=== PATIENT | male | born 1955 | race Caucasian/White ===

== ENCOUNTER 2018-12-20 18:38 | Observation (INO) | payer OTHER ==
[2018-12-20] MEDS ORDERED: LIDOCAINE 2% JELLY 6 ML TOPICAL SYR ONE (18:49)
[2018-12-20 19:22] LABS: PLATELET COUNT 413 10^3/uL (150-400)
--- NOTE | 2018-12-20 19:26 | EDPHY ---
H & P Stated Complaint: Recent thoracentesis, increasing SOB and fluid on abdomen. Time Seen by Provider: 12/20/18 18:47 HPI/ROS: CHIEF COMPLAINT: Fluid in the lungs, fluid in the belly HISTORY OF PRESENT ILLNESS: 63-year-old gentleman with history of pancreatic cancer diagnosed 5 years ago with metastasis to the lungs. Patient recently, December 08, had thoracentesis the right lung to remove a pleural effusion. Family reports that since that time he continues to have ongoing slightly worsening shortness of breath and ongoing chest pain. He also feels like he is developing some swelling in his abdomen. Denies fevers or chills. Denies palpitations. Nausea but no vomiting. No diarrhea. No urinary complaints. No headache. No lightheadedness. Has not been on any chemotherapeutic agents since 5-6 weeks ago. Patient has been on oxygen since the thoracentesis. REVIEW OF SYSTEMS: A comprehensive 10 system review of systems was reviewed and is otherwise negative aside from elements mentioned in the history of present illness and medical decision making. PAST MEDICAL HISTORY: Pancreatic cancer, history of pleural effusion. Patient' s care is been obtained at [facility] SOCIAL HISTORY: Former smoker, originally from [facility]. VITAL SIGNS Reviewed by me. O2 sat 98% on O2. GENERAL: Well-developed, well-nourished, no obvious respiratory distress. HEENT: Atraumatic. Eyes: No icterus, no injection. Mouth: moist mucous membranes. No erythema or lesions. Neck: supple with no adenopathy. LUNGS: Diminished breath sounds at the right base to half up lung [place]. Breath sounds are clear on the left. CARDIAC: Regular rate and rhythm, no rubs, murmurs or gallops. ABDOMEN: Soft, no significant tenderness. Slightly distended in the right upper and lower quadrants. No guarding or rebound. BACK: No CVA tenderness. EXTREMITIES: No trauma. No edema. Range of motion is normal throughout. NEURO: Alert and oriented, grossly nonfocal. SKIN: Warm and dry, no rash. PSYCHIATRIC: Normal mentation, no agitation. - Personal History Current Tetanus Diphtheria and Acellular Pertussis (TDAP): Unsure - Medical/Surgical History Hx Asthma: No Hx Chronic Respiratory Disease: Yes Hx Diabetes: No Hx Cardiac Disease: No Hx Renal Disease: No Hx Cirrhosis: No Hx Alcoholism: No Hx HIV/AIDS: No Hx Splenectomy or Spleen Trauma: No Other PMH: Pancreatic cancer. Thoracentesis Dec 08 2018. - Social History Smoking Status: Never smoked Constitutional: Initial Vital Signs Temperature (C) 36.4 C 12/20/18 18:39 Heart Rate 87 12/20/18 18:39 Respiratory Rate 18 12/20/18 18:39 Blood Pressure 142/84 H 12/20/18 18:39 O2 Sat (%) 97 12/20/18 18:39 O2 Delivery Mode Nasal Cannula O2 (L/minute) 3 Allergies/Adverse Reactions: No Known Allergies Allergy (Unverified 12/20/18 18:43) Home Medications: Medication Instructions Recorded Cholecalciferol Vit D3 [Vitamin D3 50,000 unit PO WE 12/20/18 (*)] Lidocaine/Prilocaine [Emla Cream] 1 mary TP DAILY PRN 12/20/18 Lipase 24,000/Amylase/Protease 2 cap PO QID PRN 12/20/18 [Creon 24 (*)] Lipase 24,000/Amylase/Protease 3 cap PO TIDMEAL 12/20/18 [Creon 24 (*)] Mirtazapine [Remeron soltab 15 mg 15 mg PO HS 12/20/18 (*)] Omeprazole 40 mg PO DAILY 12/20/18 Medical Decision Making - Diagnostics EKG Interpretation: 12-LEAD EKG: Please see the full report in Trace Master. My interpretation: Normal sinus rhythm Imaging Results: CXR: Impression: Opacification of the right hemithorax from a large pleural effusion. Dictated By: Duc Mccain MD Imaging: I viewed and interpreted images myself ED Course/Re-evaluation: 63-year-old male with history of pancreatic cancer and recent thoracentesis for right-sided pleural effusion. Patient reports that since that procedure he has had ongoing shortness of breath and gradually increasing his O2 requirement. He also reports ongoing upper abdominal pain and some swelling. Patient's PORT was access. EKG demonstrates normal sinus rhythm. Troponin was negative. Labs were remarkable for a lipase of 312. Chest x-ray is remarkable for a large right pleural effusion covering the entire right hemithorax. Patient's [facility] records from [facility] were accessed. Prior pleural effusion was described as large pleural effusion which was drained using ultrasound guidance. 1 L of some fluid was removed. Patient's course discussed with the hospitalist service. Patient will be admitted to the hospital for further evaluation by interventional radiology and discussion regarding treatment and thoracentesis. I offered to contact the patient's primary oncologist at [facility] for discussions regarding urgent followup with thoracentesis there; family would prefer to be admitted here and have the effusion treated urgent to emergently. Differential Diagnosis: Differential diagnosis for the patient's shortness of breath was considered including but not limited to pulmonary infectious processes, recurrent pleural effusion, pulmonary emboli, pulmonary edema, congestive heart failure, and cardiac causes. Consult/Admit Bed Type: Dr. [facility] Laboratory Results: Laboratory Results 12/20/18 19:10 12/20/18 19:10 Medications Given: Discontinued Medications Lipase/Protease/Amylase (Creon) 3 cap PO TIDMEAL [facility] Stop: 06/19/19 07:59 Last Admin: 12/21/18 12:39 Dose: Not Given Pantoprazole Sodium (Protonix) 40 mg PO DAILY LINDA Stop: 06/19/19 08:59 Last Admin: 12/21/18 09:40 Dose: Not Given Departure - Departure Disposition: [facility] Inpatient Acute Clinical Impression: Recurrent right pleural effusion Pancreatic cancer Qualifiers: Pancreatic malignancy location: unspecified Qualified Code(s): C25.9 - Malignant neoplasm of pancreas, unspecified Condition: Fair
[2018-12-20 20:11] LABS: INR 1.06 (0.83-1.16); PROTIME(PATIENT) 13.4 SEC (12.0-15.0)
--- NOTE | 2018-12-20 21:03 | CPEKG ---
Test Reason : OPEN Blood Pressure : / mmHG Vent. Rate : 082 BPM Atrial Rate : 082 BPM P-R Int : 132 ms QRS Dur : 081 ms QT Int : 371 ms P-R-T Axes : -24 009 024 degrees QTc Int : 434 ms Sinus rhythm Confirmed by Maribeth Bess ([id number]) on 12/20/2018 9:03:38 PM Referred By: Maribeth Bess Confirmed By:Maribeth Bess
[2018-12-20] MEDS ORDERED: oxyCODONE IR 5 MG TAB PO PRN (21:54)
[2018-12-20] MEDS ORDERED: ONDANSETRON 4 MG/2 ML VIAL IVP PRN (21:54)
[2018-12-20] MEDS ORDERED: HYDROCODONE/APAP 5/325 TAB PO PRN (21:54)
[2018-12-20] MEDS ORDERED: HYDROmorphONE/DILAUDID 1 MG/ML INJ IVP PRN (21:54)
[2018-12-20] MEDS ORDERED: LORazepam 0.5 MG TAB PO PRN (21:54)
[2018-12-20] MEDS ORDERED: PROMETHAZINE HCL 25 MG/ML INJ IVP PRN (21:54)
[2018-12-20] MEDS ORDERED: ACETAMINOPHEN 325 MG TAB PO PRN (21:54)
[2018-12-20] MEDS ORDERED: ALBUTEROL 3 ML DEYVIAL IH PRN (21:54)
[2018-12-20] MEDS ORDERED: LORazepam 2 MG/ML INJ IVP PRN (21:54)
[2018-12-20] MEDS ORDERED: ONDANSETRON DISINTEGRATING 4 MG TAB PO PRN (21:54)
[2018-12-20] MEDS ORDERED: LIPASE 24,000/AMYLASE/PROTEASE (CREON) 1 CAP PO PRN (21:56)
[2018-12-20] MEDS ORDERED: LIDOCAINE/PRILOCAINE 1 EACH CRTUBE TP PRN (21:56)
--- NOTE | 2018-12-20 21:56 | PDGENHP ---
History and Physical - Chief Complaint sob - History of Present Illness 63 yo M with hx of metastatic adenocarcinoma of the pancreas treated primarily by Dr. Willard at [facility] and with recent development of malignant pleural effusion last tapped for 1L on 12/08 at [facility] presenting with increased sob and found to have large right pleural effusion. Patient notes that since the fluid was removed on the , he has noticed progressive sob and difficulty breathing. He states he was not aware that the fluid may return and was not told to return for f/u imaging and so ignored the symptoms as long as he could, but tonight the sxs were too severe and so he came in. He is fairly angry on evaluation and does not understand why we cannot drain the fluid tonight, and states that we are all too lazy and need to clock out right at 9pm so will not take care of him , also believe that the hospital chooses to defer these things until the morning so that we can make extra money for keeping him here overnight. Explained at length to patient and his doctor that procedures such as these are often deferred until the morning when it is safe to do so as the doctors who do these procedures the most safely are not here until the morning, and even though he feels poorly, he is speaking in full sentences, his o2 is in high 90s on 2L and that is safe to defer the procedure until the morning. Patient remains somewhat angry and frustrated, but otherwise outside of his breathing issues denies any other acute changes in his health. He does note that his abdominal swelling has increased and that he has been progressively losing weight. History Information - Allergies/Home Medication List Allergies/Adverse Reactions: No Known Allergies Allergy (Unverified 12/20/18 18:43) Home Medications: Cholecalciferol Vit D3 [Vitamin D3 (*)] 50,000 unit PO WE 12/20/18 [Last Taken 12/13/18] Lidocaine/Prilocaine [Emla Cream (RX)] 1 mary TP DAILY PRN 12/20/18 [Last Taken Unknown] Lipase 24,000/Amylase/Protease [Creon 24 (*)] 2 cap PO QID PRN 12/20/18 [Last Taken 12/20/18] Lipase 24,000/Amylase/Protease [Creon 24 (*)] 3 cap PO TIDMEAL 12/20/18 [Last Taken 12/20/18] Mirtazapine [Remeron soltab 15 mg (*)] 15 mg PO HS 12/20/18 [Last Taken 12/19/18 ] Omeprazole 40 mg PO DAILY 12/20/18 [Last Taken 12/20/18] I have personally reviewed and updated: family history, medical history, social history, surgical history - Past Medical History cancer (metastatic pancreatic adenocarcinoma), GERD, hypertension Additional medical history: panc ca--currently being treated with gemcitabine and abraxane, prior capecitabine and FOLFIRONOX with progression--he has been treated both here and in multiple other countries with alternative treatments including high dose vitamin c and mistletoe as well as hyperthermia, hyperbaric oxygen etc; known mets to bone, LN, lung. T12 metastasis. chronic hypoxic respiratory failure on 4L. malignant pleural effusion - Surgical History Reports: cancer surgery (whipple) - Family History Positive for: non-pertinent - Social History Smoking Status: Former smoker Alcohol Use: Rarely Drug Use: None Additional social history: originally from [facility], accompanied by his daughter, speaks and understands limited urdu Review of Systems Review of Systems: ROS: 10pt was reviewed & negative except for what was stated in HPI & below Physical Exam Physical Exam: Temp Pulse Resp BP Pulse Ox 36.8 C 88 20 119/78 97 12/20/18 21:03 12/20/18 21:03 12/20/18 21:03 12/20/18 21:03 12/20/18 21:03 O2 (L/minute) 3 Constitutional: chronically ill appearing, uncomfortable Eyes: PERRL, anicteric sclera Ears, Nose, Mouth, Throat: moist mucous membranes, hearing normal Cardiovascular: regular rate and rhythym, no murmur, rub, or gallop, edema ( pedal) Respiratory: reduced air movement (absent on the right to the apex), inspiratory crackles, respiratory distress Gastrointestinal: tenderness, distension, No no palpable masses, No guarding, No rebound Genitourinary: no bladder tenderness Skin: warm, normal color Musculoskeletal: full muscle strength Neurologic: AAOx3 Psychiatric: agitated Lab Data & Imaging Review 12/20/18 19:10 12/20/18 19:10 WBC 12.12 10^3/uL (3.80-9.50) H 12/20/18 19:10 RBC 4.60 10^6/uL (4.40-6.38) 12/20/18 19:10 Hgb 12.8 g/dL (13.7-17.5) L 12/20/18 19:10 Hct 41.2 % (40.0-51.0) 12/20/18 19:10 MCV 89.6 fL (81.5-99.8) 12/20/18 19:10 MCH 27.8 pg (27.9-34.1) L 12/20/18 19:10 MCHC 31.1 g/dL (32.4-36.7) L 12/20/18 19:10 RDW 16.3 % (11.5-15.2) H 12/20/18 19:10 Plt Count 413 10^3/uL (150-400) H 12/20/18 19:10 MPV 9.7 fL (8.7-11.7) 12/20/18 19:10 Neut % (Auto) 63.8 % (39.3-74.2) 12/20/18 19:10 Lymph % (Auto) 22.4 % (15.0-45.0) 12/20/18 19:10 Bay % (Auto) 11.1 % (4.5-13.0) 12/20/18 19:10 Eos % (Auto) 1.6 % (0.6-7.6) 12/20/18 19:10 Baso % (Auto) 0.7 % (0.3-1.7) 12/20/18 19:10 Nucleat RBC Rel Count 0.0 % (0.0-0.2) 12/20/18 19:10 Absolute Neuts (auto) 7.73 10^3/uL (1.70-6.50) H 12/20/18 19:10 Absolute Lymphs (auto) 2.71 10^3/uL (1.00-3.00) 12/20/18 19:10 Absolute Monos (auto) 1.35 10^3/uL (0.30-0.80) H 12/20/18 19:10 Absolute Eos (auto) 0.19 10^3/uL (0.03-0.40) 12/20/18 19:10 Absolute Basos (auto) 0.09 10^3/uL (0.02-0.10) 12/20/18 19:10 Absolute Nucleated RBC 0.00 10^3/uL (0-0.01) 12/20/18 19:10 Immature Gran % 0.4 % (0.0-1.1) 12/20/18 19:10 Immature Gran # 0.05 10^3/uL (0.00-0.10) 12/20/18 19:10 PT 13.4 SEC (12.0-15.0) 12/20/18 19:10 INR 1.06 (0.83-1.16) 12/20/18 19:10 APTT 38.7 SEC (23.0-38.0) H 12/20/18 19:10 Sodium 135 mEq/L (135-145) 12/20/18 19:10 Potassium 4.2 mEq/L (3.5-5.2) 12/20/18 19:10 Chloride 101 mEq/L (97-110) 12/20/18 19:10 Carbon Dioxide 25 mEq/l (22-31) 12/20/18 19:10 Anion Gap 9 mEq/L (6-14) 12/20/18 19:10 BUN 19 mg/dL (7-23) 12/20/18 19:10 Creatinine 0.7 mg/dL (0.7-1.3) 12/20/18 19:10 Estimated GFR > 60 12/20/18 19:10 Glucose 107 mg/dL (70-100) H 12/20/18 19:10 Calcium 9.9 mg/dL (8.5-10.4) 12/20/18 19:10 Total Bilirubin 0.4 mg/dL (0.1-1.4) 12/20/18 19:10 Conjugated Bilirubin 0.0 mg/dL (0.0-0.5) 12/20/18 19:10 Unconjugated Bilirubin 0.4 mg/dL (0.0-1.1) 12/20/18 19:10 AST 36 IU/L (17-59) 12/20/18 19:10 ALT 53 IU/L (21-72) 12/20/18 19:10 Alkaline Phosphatase 116 IU/L (38-126) 12/20/18 19:10 Troponin I < 0.012 ng/mL (0.000-0.034) 12/20/18 19:10 Total Protein 7.1 g/dL (6.3-8.2) 12/20/18 19:10 Albumin 3.6 g/dL (3.5-5.0) 12/20/18 19:10 Lipase 318 IU/L (23-300) H 12/20/18 19:10 Urine Color YELLOW 12/20/18 19:45 Urine Appearance CLEAR 12/20/18 19:45 Urine pH 5.0 (5.0-7.5) 12/20/18 19:45 Ur Specific [place] 1.029 (1.002-1.030) 12/20/18 19:45 Urine Protein NEGATIVE (NEGATIVE) 12/20/18 19:45 Urine Ketones TRACE (NEGATIVE) H 12/20/18 19:45 Urine Blood NEGATIVE (NEGATIVE) 12/20/18 19:45 Urine Nitrate NEGATIVE (NEGATIVE) 12/20/18 19:45 Urine Bilirubin NEGATIVE (NEGATIVE) 12/20/18 19:45 Urine Urobilinogen NEGATIVE EU (0.2-1.0) 12/20/18 19:45 Ur Leukocyte Esterase NEGATIVE (NEGATIVE) 12/20/18 19:45 Urine RBC NONE SEEN /hpf (0-3) 12/20/18 19:45 Urine WBC 1-3 /hpf (0-3) 12/20/18 19:45 Ur Epithelial Cells NONE SEEN /lpf (NONE-1+) 12/20/18 19:45 Urine Mucus 4+ /lpf (NONE-1+) H 12/20/18 19:45 Urine Glucose NEGATIVE (NEGATIVE) 12/20/18 19:45 Visualized and Interpreted Chest x-ray results: Yes Chest X-Ray results: effusion (right lung nearly entirely opacified) Visualized and Interpreted EKG results: Yes EKG Interpretation: Positive for: normal sinsus rhythm Assessment & Plan Assessment: Pancreatic cancer (Acute) Recurrent right pleural effusion (Acute) 63 yo M with metastatic pancreatic cancer and associated malignant pleural effusion w/increased sob and large right sided pleural effusion # recurrent malignant effusion: with increased sob although patient is maintaining o2 sats on his home oxygen, last thora performed on 12/08 at which time 1L was removed and cytology confirming adenocarcinoma c/w pancreatic. US guided thora in the am, patient frustrated about the delay in treatment which was attempted to be explained to him and discussed that in the future contacting his oncologist when sxs are worsening could potentially avoid hospitalization, although clearly this time he was not really sure the same issue was recurring. May benefit from a drain if recurrences continue to be rapid # metastatic pancreatic cancer: sp whipple in 2013 as well as multiple rounds of chemotherapy and alternative treatments as above, followed by Dr. Willard currently and most recent tx with gemcitabine and abraxane given recurrence on previous tx. He is pursuing alternative treatment currently, unclear details, has been considered for clinical trials but per Sudheer's note, may not be a candidate. Mets to bone, lung, LN, recent PET scan performed with pulmonary mets new as well as new T1 osseous met # acute on chronic hypoxic respiratory failure: patient has been on 4L of oxygen prior to admission due to lung mets, currently increased sob with large recurrent right sided pleural effusion/near total white out of right lung on cxr , as above # leukocytosis: without real s/s of infection but increased from prior, will trend and monitor for fever etc # GERD: continue ppi # observation status Patient new to my care. Old records reviewed and summarized as above, including reports in [facility] from [facility]. Care plan reviewed with ER doctor and further hx obtained from patients daughter present at bedside.
[2018-12-21] MEDS ORDERED: PANTOPRAZOLE SODIUM 40 MG TAB PO SCH (09:00)
[2018-12-21] MEDS: LIPASE 24,000/AMYLASE/PROTEASE (CREON) 1 CAP PO SCH ×2 (09:40→12:39)
[2018-12-21 12:41] VITALS: BP 96/61
--- NOTE | 2018-12-21 13:00 | PDDCSUM ---
Discharge Summary Discharge Summary: Date of Admission: 12/20/2018 Date of Discharge: 12/21/2018 Procedures: right sided therapeutic thoracentesis Discharge Diagnoses: 1. Large right sided malignant pleural effusion 2. Metastatic pancreatic adenocarcinoma s/p Whipple in 2013 3. Acute on chronic hypoxemic respiratory failure (2-3L) 4. Leukocytosis Brief Hospital Course: 63 yo M with metastatic pancreatic cancer and associated malignant pleural effusion presented w/increased sob and large right sided pleural effusion. He underwent thoracentesis on 12/08 (approx 2 weeks prior to admission, this was his first tap) at which time 1L of fluid was removed; cytology confirmed that this was malignant. He developed worsening dyspnea and presented to our ED where a CXR showed almost complete white out of his right lung. He underwent a therapeutic thoracentesis on 12/[address] Vale at which time 3.4L of fluid was removed (this was not sent to the lab). He symptomatically improved. Additional fluid was not removed at this time due to potential concern for re- expansion pulmonary edema. He was set up to have a repeat thoracentesis to drain additional fluid in 5 days with our IR department. He will then follow up with his oncologist at [facility] (Dr Willard) to discuss pleur-X catheter placement, if necessary. He was requiring 2-3L of supplemental oxygen at discharge. Regarding his cancer, his most recent treatment was with gemcitabine and abraxane but he appears to be pursuing alternative treatments currently. He does have metastases to his bone, lung, lymph nodes. Medications: Please refer to EMR for complete list. No changes were made this admission. Follow Up Plan: 1. Has appointment on Tuesday, 12/26 with interventional radiology for repeat right sided therapeutic thoracentesis. 2. Follow up with his primary oncologist, Dr Willard, at [facility] in 1-2 weeks
--- NOTE | 2018-12-21 13:45 | ASMTDCNOTE ---
Case Management Discharge Discharge Order Complete? Answers: Yes Patient to Obtain Answers: via Family Medications Transportation Arranged Answers: Family/Friends Discharge Comments Notes: Spoke with RN and MD, pt underwent thoracentesis and discharged independently. Family was at bedside supportive and can help with follow-up and transportation. No other CM needs identified. Date Signed: 12/21/2018 01:44 PM Electronically Signed By:MIRIAM Jiang
--- NOTE | 2018-12-21 14:02 | ASDISCHSUM ---
Discharge Information Plan Status:Home with No Needs Medically Cleared to Leave:12/21/2018 Discharge Date:12/21/2018 01:37 PM CM D/C Disposition:Home, Routine, Self-Care ADT D/C Disposition:Home, Routine, Self-Care Projected Discharge Date:12/21/2018 01:37 PM Transportation at D/C: Discharge Delay Reason: Follow-Up Date:12/21/2018 01:37 PM Discharge Slot: Final Diagnosis: Placement Information Patient Contact Information Contact Name:NAGEL Relationship:Daughter Address: Work Phone: City: [facility] Phone: State/[place] Code:[place] Email: Financial Information Financial Class:Medicare Advantage Plans Primary Plan Desc:ABDULKADIR MEDICARE ADV Primary Plan Number:[id number] Secondary Plan Desc: Secondary Plan Number: Assessment Information LACE LACE Length of stay for Answers: Less than 1 day current admission Acuity / Level of Answers: No Care: Did the patient have an inpatient admission? Comorbidities - select Answers: Any tumor (including all that apply lymphoma or leukemia) Opioid dependence / Chronic pain Other Notes: HTN # of Emergency department Answers: 1-2 visits in the last 6 months Score: 8 Date Signed: 12/21/2018 02:01 PM Electronically Signed By:MIRIAM Jiang Case Management Discharge Plan Note Case Management Discharge Discharge Order Complete? Answers: Yes Patient to Obtain Answers: via Family Medications Transportation Arranged Answers: Family/Friends Discharge Comments Notes: Spoke with RN and MD, pt underwent thoracentesis and discharged independently. Family was at bedside supportive and can help with follow-up and transportation. No other CM needs identified. Date Signed: 12/21/2018 01:44 PM Electronically Signed By:MIRIAM Jiang Intervention Information
[2018-12-21] MEDS ORDERED: MIRTAZAPINE 15 MG ODTAB PO SCH (21:00)
== END 2018-12-21 13:37 | disposition home or self-care (01) ==
LOC: F1N 21:18
PROVIDERS: ADMIT Internal Medicine; ATTEND Internal Medicine
PROC: 0W993ZZ Drainage of Right Pleural Cavity, Percutaneous Approach (ICD-10-PCS; principal; 2018-12-20)
DX: C78.01 Secondary malignant neoplasm of right lung (principal); J91.0 Malignant pleural effusion; C79.51 Secondary malignant neoplasm of bone; C77.2 Secondary and unspecified malignant neoplasm of intra-abdominal lymph nodes; Z85.07 Personal history of malignant neoplasm of pancreas; Z90.410 Acquired total absence of pancreas; Z87.891 Personal history of nicotine dependence
CPT/HCPCS: 32555; 71045; 71046; 93005; 99285; G0378; J1642

== ENCOUNTER → 2018-12-26 | Outpatient (CLI) | payer OTHER | LOC: FIMAGING 11:36 | PROVIDERS: ATTEND Internal Medicine | PROC: 0W993ZX Drainage of Right Pleural Cavity, Percutaneous Approach, Diagnostic (ICD-10-PCS; principal; 2018-12-26) | DX: J90 Pleural effusion, not elsewhere classified (principal); R06.02 Shortness of breath ==

== ENCOUNTER → 2018-12-29 | Day surgery (SDC) | payer OTHER ==
[~2018-12-29] MED LIST: ACETAMINOPHEN 325 MG TAB PO PRN; FLUMAZENIL 0.5 MG/5 ML MDV IVP PRN; LIDO/EPI 1% **for epidural** 30 ML SDV ONE; MIDAZOLAM 2 MG/2 ML VIAL IVP PRN; NALOXONE HCL 0.4 MG/ML INJ IVP PRN; NS 1,000 ML IV SCH; ONDANSETRON 4 MG/2 ML VIAL IVP PRN; ceFAZolin 2 GM/DEXTROSE 100 ML IV ONE; fentaNYL 100 MCG/2 ML INJ IVP PRN
--- NOTE | 2018-12-29 12:12 | PDRADPRE ---
Radiology History & Physical Indication for procedure: cancer Home medications: Cholecalciferol Vit D3 [Vitamin D3 (*)] 50,000 unit PO WE 12/20/18 [Last Taken 12/13/18] Lidocaine/Prilocaine [Emla Cream] 1 mary TP DAILY PRN 12/20/18 [Last Taken Unknown] Lipase 24,000/Amylase/Protease [Creon 24 (*)] 3 cap PO TIDMEAL 12/20/18 [Last Taken 12/20/18] Omeprazole 40 mg PO DAILY 12/20/18 [Last Taken 12/20/18] Allergies/Adverse Reactions: No Known Allergies Allergy (Unverified 12/20/18 18:43) Mental status: A&Ox3
--- NOTE | 2018-12-29 12:12 | PDPROPOC ---
Sedation Plan of Care ASA Classification: ASA 3 Mallampati Score: Class 2 Mallampati Reference Image:
--- NOTE | 2018-12-29 14:04 | PDRADPN ---
Radiology Procedure Note Date of Procedure: 12/29/18 Radiologist: Duc Mccain Anesthesia: IV Sedation Pre-op Diagnosis: recurrent pleural effusion Post-op Diagnosis: same Procedure: right pleurX placement Inf/Abcess present in the surg proc area at time of surgery?: No
[2018-12-29 15:32] VITALS: BP 118/69
== END | disposition home or self-care (01) ==
LOC: FIMAGING 11:39
PROVIDERS: ATTEND Internal Medicine Hematology & Oncology
PROC: 0W9930Z Drainage of Right Pleural Cavity with Drainage Device, Percutaneous Approach (ICD-10-PCS; principal; 2018-12-29 14:20)
DX: C78.01 Secondary malignant neoplasm of right lung (principal); J91.0 Malignant pleural effusion; Z85.07 Personal history of malignant neoplasm of pancreas
CPT/HCPCS: 32550; 76999; 99152; C1729; C1769; C2617; J0690; J1642; J2250; J2310; J3010